=== PATIENT | female | born 1985 | race Caucasian/White ===

== ENCOUNTER → 2017-06-07 11:05 | Outpatient (CLI) | payer OTHER, SELFPAY ==
[2017-06-07 12:55] LABS: hCG Titer Quant., Serum 164 mIU/mL (<9 non-preg)
== END ==
PROVIDERS: Family Provider Family Medicine; PCP Family Medicine; Visit Provider Family Medicine
DX: O20.9 Hemorrhage in early pregnancy, unspecified (principal)
CPT/HCPCS: 36415; 84702; 86850; 86900

== ENCOUNTER → 2017-07-01 12:21 | Outpatient (CLI) | payer OTHER, SELFPAY ==
[2017-07-01 12:42] LABS: Hematocrit 37.2 % (37-47); Hemoglobin 12.4 g/dl (12.0-15.0); Mean Corp Hgb Conc 33.3 g/gl (32-36); Mean Corpuscular Hgb 31.1 pg (27.0-32.0); Mean Corpuscular Volume 93.2 fL (81-99); Mean Platelet Vol. 8.7 fl (6.2-12.0); Platelet Count 186 K/mm3 (150-450); RBC Distribution Width SD 40.8 fl (35.1-43.9); Red Blood Count 3.99 M/mm3 (4.2-5.4); Scan Indicated on CBC? Y/N NO; White Blood Count 7.5 K/mm3 (4.4-11.0)
[2017-07-01 12:59] LABS: ALB/GLOB Ratio 1.1 RATIO (0.9-2.4); AST(SGOT) 21 U/L (15-37); Alanine Aminotransfer ALT/SGPT 24 U/L (13-56); Albumin, Serum 4.2 g/dL (3.2-5.0); Alkaline Phosphatase 58 U/L (45-117); Anion Gap 5 (5-15); BUN 17 mg/dL (7-18); BUN/Creat Ratio 21.4 RATIO (10-20); Calcium,Total 8.8 mg/dL (8.5-10.1); Chloride 103 mmol/L (98-107); EST Glomerular Filtration Rate 90 mL/min (>60); Est Glom Filt Rate - Afr Amer 109 mL/min (>60); Globulin 3.7 g/dL (2.2-4.2); Glucose 85 mg/dL (74-106); Potassium 3.9 mmol/L (3.5-5.1); Protein, Total 7.9 g/dL (6.4-8.2); Sodium Level 136 mmol/L (136-145)
[2017-07-01 13:00] LABS: hCG Titer Quant., Serum 140 mIU/mL (<9 non-preg)
== END ==
PROVIDERS: Family Provider Family Medicine; PCP Family Medicine; Visit Provider Obstetrics & Gynecology
DX: O00.90 Unspecified ectopic pregnancy without intrauterine pregnancy (principal)
CPT/HCPCS: 36415; 80053; 84702; 85027

== ENCOUNTER → 2017-07-04 15:32 | Outpatient (CLI) | payer OTHER, SELFPAY ==
[2017-07-04 16:23] LABS: hCG Titer Quant., Serum 111 mIU/mL (<9 non-preg)
== END ==
PROVIDERS: Family Provider Family Medicine; PCP Family Medicine; Visit Provider Obstetrics & Gynecology
DX: O00.90 Unspecified ectopic pregnancy without intrauterine pregnancy (principal); Z3A.00 Weeks of gestation of pregnancy not specified
CPT/HCPCS: 36415; 84702

== ENCOUNTER → 2017-07-07 15:26 | Outpatient (CLI) | payer OTHER, SELFPAY ==
[2017-07-07 16:33] LABS: hCG Titer Quant., Serum 62 mIU/mL (<9 non-preg)
== END ==
PROVIDERS: Family Provider Family Medicine; PCP Family Medicine; Visit Provider Obstetrics & Gynecology
DX: O00.90 Unspecified ectopic pregnancy without intrauterine pregnancy (principal); Z3A.00 Weeks of gestation of pregnancy not specified
CPT/HCPCS: 36415; 84702

== ENCOUNTER 2018-09-29 15:24 | Emergency (ER) | payer OTHER, SELFPAY ==
[2018-09-29 15:26] VITALS: BP 110/77; PULSE 79; RESP 14; TEMP 36.4; O2SAT 95; BMI 23.9
[2018-09-29 16:05] LABS: Absolute Lymphocyte Count 2.17 X10^3/uL (0.83-4.51); Basophil# 0.02 X10^3/uL; Basophil% 0.3 % (0-1); Eosinophil# 0.09 X10^3/uL; Eosinophils% 1.3 % (0-5); Hematocrit 40.8 % (37-47); Hemoglobin 13.6 g/dL (12.0-15.0); Lymphocyte # 2.17 X10^3/ul (4.0); Lymphocyte % 31.2 % (19-41); Mean Corp Hgb Conc 33.3 g/dL (32-36); Mean Corpuscular Hgb 30.9 pg (27.0-32.0); Mean Corpuscular Volume 92.7 fL (81-99); Mean Platelet Vol. 8.5 fl (6.2-12.0); Monocyte# 0.67 X10^3/uL; Monocyte% 9.6 % (0-10); NRBC Flagged by Analyzer 0 % (0-5); Neutrophil # 3.99 X10^3/uL (2.7-7.7); Neutrophil % 57.3 % (47-70); Platelet Count 271 K/mm3 (150-450); RBC Distribution Width CV 11.9 % (11.6-14.6); RBC Distribution Width SD 40.4 fl (35.1-43.9)
[2018-09-29 16:22] LABS: Anion Gap 8 (5-15); BUN 11 mg/dL (7-18); BUN/Creat Ratio 12.6 RATIO (10-20); Chloride 106 mmol/L (98-107); Creatinine, Serum 0.88 mg/dL (0.55-1.02); EST Glomerular Filtration Rate 80 mL/min (>60); Est Glom Filt Rate - Afr Amer 97 mL/min (>60); Estimated Creatinine Clearance 86.71 ml/min; Glucose 102 mg/dL (74-106); Potassium 3.5 mmol/L (3.5-5.1); Sodium Level 142 mmol/L (136-145)
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
[2018-09-29 16:48] LABS: Alcohol, Blood (Medical)-Serum < 3.0 mg/dL
[2018-09-29] MEDS: hydrOXYzine PAM 25 MG Capsule PO (17:04)
--- NOTE | 2018-09-29 17:16 | ED.VISSUMM ---
- ER Visit Summary Date of Service: 09/29/18 Chief Complaint: Suicidal ideation History of Present Illness: The patient is a 33 F presenting with suicidal ideation. Patient states that she has messed up her life and wants to . She was in [place] for detox in May. From there she went to [facility] for 94 days for drug and alcohol rehab. Patient was sober throughout her rehab stay. Patient and family state the day she was discharged she started using again. She disappeared for 3 weeks. She states she is using methamphetamine, alcohol, occasional Xanax. She has a history of cutting and overdose at age 17. She has had thoughts of shooting herself in the head. She states she does have access to a gun. Denies other complaints. Physical Examination: Vitals are stable. Patient is afebrile. Alert no acute distress. HEENT exam is unremarkable. Neck is supple. Lungs are clear and equal bilaterally. Heart is regular rate and rhythm. Abdomen is soft nontender nondistended. Extremities are unremarkable. Skin is warm and dry. No focal neurologic deficit. Depressed, suicidal ideation Remainder of exam is unremarkable. Emergency Department Course and Treatment: CBC, chemistries unremarkable. Alcohol negative. Tox is pending. Discussed with social work for evaluation and placement. Disposition: per Social work Impression: Suicidal ideation This note was generated with Station X dictation software. It may contain incorrect words, spelling, and punctuation that were not noted in review of the chart prior to signing ED Disposition - Plan for ED Patient: Referrals: Mino Mejia DO [Primary Care Provider] -
[2018-09-29 17:19] LABS: Internal QC Validated? YES +Cl - CLEAR BKGD; Pregnancy, Serum, hCG Quali. NEGATIVE Negative
--- NOTE | 2018-09-29 17:54 | CM.ED ---
SOCIAL WORK REFERRAL FAXED AND CALLED TO [facility]. AWAITING RESULTS OF TOX SCREEN. FERNANDEZ MONTES, WEIGHT CONTROL LECTURER, SEO MARKETING SPECIALIST.
[2018-09-29] MEDS: DiphenhydrAMINE 25 MG Capsule PO (17:56)
[2018-09-29 18:12] VITALS: BP 95/52; PULSE 71; RESP 18; O2SAT 98
[2018-09-29 18:25] LABS: Amphetamine Urine VISTA POSITIVE (<1000 ng/mL); Barbiturate Urine VISTA NEGATIVE (< 200 ng/mL); Benzodiazepine Urine VISTA POSITIVE (< 200 ng/mL); Cocaine Urine VISTA POSITIVE (< 300 ng/mL); Ecstacy Urine VISTA POSITIVE (< 500 ng/mL); Methadone Urine VISTA NEGATIVE (< 300 ng/mL); PCP Urine VISTA NEGATIVE (< 25 ng/mL); THC Urine VISTA NEGATIVE (< 50 ng/mL); Vista UDS pH Range 6
--- NOTE | 2018-09-29 18:41 | CM.ED ---
SOCIAL WORK CALL FROM [facility]TAKE AT [facility]. PATIENT ACCEPTED TO [facility]. ACCEPTING PHYSICIAN IS DR. CATES. NURSE TO CALL REPORT TO . MANAGER UI SET UP TRANSPORT FOR 7:30P. PATIENT AND FAMILY UPDATED. FERNANDEZ MONTES, GAME PROGRAMMER, MAMMOGRAPHER.
--- NOTE | 2018-09-29 18:45 | CM.ED ---
SOCIAL WORK PINK SLIP AND TOX SCREEN FAXED TO [facility]. FERNANDEZ MONTES, SIXTH GRADE TEACHER, REGISTERED NURSE FIRST ASSISTANT.
[2018-09-29 18:51] VITALS: BP 95/52; PULSE 71; RESP 18; O2SAT 98
[2018-09-29 19:25] VITALS: RESP 16
== END 2018-09-29 20:17 ==
PROVIDERS: Emergency Provider Emergency Medicine; Family Provider Family Medicine; PCP Family Medicine
DX: F32.9 Major depressive disorder, single episode, unspecified (principal); R45.851 Suicidal ideations; F41.9 Anxiety disorder, unspecified; Z79.899 Other long term (current) drug therapy
CPT/HCPCS: 80048; 80307; 80320; 84703; 85025; 99285; G0480

== ENCOUNTER 2023-02-23 09:10 | Emergency (ER) | payer OTHER, SELFPAY ==
[2023-02-23 09:11] VITALS: BP 112/76; PULSE 76; RESP 16; TEMP 36; O2SAT 100; BMI 24.1
--- NOTE | 2023-02-23 09:35 | EDS_ITS ---
HPI History of Present Illness Chief Complaint: Headache Narrative Narrative: 38-year-old female at approximately 12 weeks gestation presents with facial pain and frontal headache that she has had since 9 PM last evening. She relates history that she had a URI and cold-like symptoms which she thought was getting better. Last evening she developed frontal facial pain and headache for which she is taking Tylenol. She denies any numbness or tingling of her arms or legs, no nausea or vomiting, no abdominal pain or vaginal bleeding. No exacerbating or alleviating factors. She has had nasal congestion and runny nose as well. She was concerned because she had preeclampsia with her previous . No leg swelling or other symptoms. [facility] Medical History History of pre-eclampsia Home Medications alprazolam 1 mg tablet (Xanax) 1 mg PO TID 06/24/16 [History Last Taken Unknown] atomoxetine 80 mg capsule 80 mg PO DAILY 09/29/18 [History Last Taken Unknown] paroxetine HCl 20 mg tablet 40 mg PO DAILY 09/29/18 [History Last Taken Unknown] ropinirole 1 mg tablet 1 mg PO QHS 09/29/18 [History Last Taken Unknown] trazodone 50 mg tablet 50 mg PO QHS 09/29/18 [History Last Taken Unknown] azithromycin 500 mg tablet (Zithromax TRI-DAYA) 500 mg PO DAILY 3 days #3 tabs 02/23/23 [Rx Last Taken Unknown] vitamins no.144-folic acid 400 mcg chewable tablet () 2 tab PO DAILY 02/23/23 [History Last Taken Unknown] Allergy/AdvReac Type Severity Reaction Status Date / Time Penicillins Allergy Rash Verified 09/29/18 15:31 Sulfa (Sulfonamide Allergy Rash Verified 09/29/18 15:31 Antibiotics) Social History Smoking Status: Unknown if ever smoked ROS ROS ED ROS Narrative Constitutional: No fever, no chills. HEENT: No sore throat. No neck pain. No loss of vision. Nasal congestion and rhinorrhea. Positive facial pain. Cardiovascular: No chest pain. No palpitations. No pedal edema. Respiratory: No cough, no shortness of breath. Abdominal: No abdominal pain. No nausea. No vomiting. Genitourinary: No dysuria. No hematuria. No vaginal bleeding or pelvic pain. Musculoskeletal: No myalgias. No arthralgias. Neurologic: Positive headaches. No dizziness. No lightheadedness. Skin: No rash. No change in color. Psychiatric: No depression. No anxiety. EXAM Physical Exam Narrative Exam Narrative: Afebrile. Vital signs noted. HEENT: Normocephalic. Atraumatic. PERRL, EOMI. Neck soft and supple. No point tenderness or step off. No meningismus. Tenderness to percussion maxillary and ethmoid sinuses. Possible nasal congestion on examination. Cardiovascular: Regular rate and rhythm. No murmurs, rubs, or gallops appreciated. Respiratory: No tachypnea. Lungs clear to auscultation bilaterally. Gastrointestinal: Abdomen soft, nontender, with normoactive bowel sounds. No rebound or guarding. Neurological: Awake. Alert. Nonfocal, nonlateralizing. Skin: No rash. Normal color. No pallor. Musculoskeletal: No pedal edema. Full range of motion extremities. Const Vital Signs: 02/23/23 09:11 Temperature 96.8 F L Temperature Source Temporal Pulse Rate 76 Respiratory Rate 16 Blood Pressure 112/76 Blood Pressure Mean 88 Pulse Ox 100 Oxygen Delivery Method Room Air MDM MDM MDM Narrative Medical decision making narrative: Differential diagnosis is sinusitis causing sinus headache versus migraine headache. She is too early in the for eclampsia. She has no other migrainous type symptoms. I discussed use of antibiotics with her and ov [id number] decongestants. Given that she is , she was told to avoid certain decongestants that cause vasoconstriction such as pseudoephedrine. I discussed with her the use of evml-bul-votxoky nasal steroids. I wrote her prescription for an azithromycin Tri-Daya which is category B. She will continue Tylenol as needed. I do not feel CT imaging is indicated and I discussed this with the patient and her . I do not feel that the radiation risk to mother and fetus outweighs the need and obtaining 1. I do not feel she needs an emergent CT scan. She has normal neurological exam otherwise. I feel she can be discharged to follow-up with her PROPERTY INSURANCE INSPECTOR and/your primary care provider. Return instructions to the emergency department were reviewed. Disposition is discharged home in stable condition. History & Record Review Discussion w/independent historian: Patient Additional record(s) reviewed:: Prior ED visit Discharge Plan Triage Chief Complaint: Headache ED Provider: Florentino Lott Dx/Rx/DC Orders Clinical Impression: Sinus headache, Current determined by history, Sinusitis Instructions: ED Sinus Headache, ED Sinusitis (Antibiotic Treatment) Prescriptions: New azithromycin [Zithromax TRI-DAYA] 500 mg tablet 500 mg PO DAILY 3 Days Qty: 3 0RF No Action alprazolam [Xanax] 1 MG tablet 1 mg PO TID ropinirole 1 MG tablet 1 mg PO QHS trazodone 50 MG tablet 50 mg PO QHS paroxetine HCl 20 MG tablet 40 mg PO DAILY atomoxetine 80 MG capsule 80 mg PO DAILY 400 mcg tablet,chewable 2 tab PO DAILY Primary Care Provider: Mino Mejia Referrals: Mino Mejia DO [Primary Care Provider] - Activity Restrictions/Additional Instructions: Continue Tylenol as directed for pain. Follow-up with your PROPERTY INSURANCE INSPECTOR. Disposition Disposition: Home, Self Care
== END 2023-02-23 09:50 | disposition home or self-care (01) ==
LOC: ED 09:49
PROVIDERS: Emergency Provider Emergency Medicine; PCP Family Medicine; Visit Provider Emergency Medicine
DX: O99.511 Diseases of the respiratory system complicating pregnancy, first trimester (principal); Z3A.12 12 weeks gestation of pregnancy; J01.00 Acute maxillary sinusitis, unspecified; J01.20 Acute ethmoidal sinusitis, unspecified; Z87.59 Personal history of other complications of pregnancy, childbirth and the puerperium
CPT/HCPCS: 99282